=== PATIENT | female | born 1970 ===

== ENCOUNTER 2017-05-11 17:58 | Emergency (ER) | payer OTHER ==
[2017-05-11 18:08] VITALS: BMI 34.9
[2017-05-11 18:11] VITALS: TEMP 98.3; O2SAT 99
--- NOTE | 2017-05-11 21:15 | C.PDOC ---
Time Seen by Provider: 05/11/17 20:02 Chief Complaint (Nursing): Cough, Cold, Congestion History Per: Patient Onset/Duration Of Symptoms: Days (about 3 weeks) Current Symptoms Are (Timing): Still Present Associated Symptoms: Cough Severity: Moderate Additional History Per: Prior Records Past Medical History Reviewed: Historical Data, Nursing Documentation, Vital Signs Vital Signs: Last Vital Signs Temp 98.3 F 05/11/17 18:09 Pulse 84 05/11/17 18:09 Resp 18 05/11/17 18:09 BP 146/74 05/11/17 18:09 Pulse Ox 99 05/11/17 18:09 - Medical History PMH: No Chronic Diseases Family History: States: Unknown Family Hx - Social History Hx Tobacco Use: Yes Hx Alcohol Use: No Hx Substance Use: No - Immunization History Hx Tetanus Toxoid Vaccination: No Hx Influenza Vaccination: No Hx Pneumococcal Vaccination: No Review Of Systems Except As Marked, All Systems Reviewed And Found Negative. Constitutional: Negative for: Fever ENT: Negative for: Nose Congestion, Throat Pain Respiratory: Positive for: Cough. Negative for: Hemoptysis Gastrointestinal: Positive for: Other (LUQ pain when she has a coughing episodes ). Negative for: Vomiting, Diarrhea Musculoskeletal: Negative for: Neck Pain Skin: Negative for: Rash Neurological: Negative for: Weakness, Numbness Physical Exam - Physical Exam Appears: Non-toxic, No Acute Distress Skin: Normal Color, Warm, Dry, No Rash Head: Atraumatic, Normacephalic Eye(s): bilateral: Normal Inspection, PERRL, EOMI Neck: Normal ROM, Supple Chest: Symmetrical Cardiovascular: Rhythm Regular Respiratory: Normal Breath Sounds, No Accessory Muscle Use Gastrointestinal/Abdominal: Soft, No Tenderness Back: No CVA Tenderness Extremity: Normal ROM, No Pedal Edema, No Calf Tenderness Neurological/Psych: Oriented x3, Normal Motor, Normal Sensation ED Course And Treatment O2 Sat by Pulse Oximetry: 99 Pulse Ox Interpretation: Normal - Radiology CXR: Interpreted by Me, Viewed By Me CXR Interpretation: Yes: No Acute Disease Disposition Counseled Patient/Family Regarding: Studies Performed, Diagnosis, Need For Followup, Rx Given, Smoking Cessation - Disposition Referrals: Jose Paige [Staff Provider] - Disposition: HOME/ ROUTINE Disposition Time: 21:19 Condition: STABLE Additional Instructions: Stop smoking. Follow up with your doctor within 1 week. Return to the ER if you develop fever, shortness of breath, worsening of symptoms or if you have any other concerns. Prescriptions: Albuterol HFA [Ventolin HFA 90 mcg/actuation (8 g)] 2 puff IH Q4 PRN #1 unit PRN Reason: Cough And Congestion Azithromycin [Zithromax] 1 dose PO DAILY #1 pkt Promethazine HCl/Codeine [Prometh-Codein 6.25-10 mg/5 ml] 5 ml PO Q4 PRN #120 ml PRN Reason: Cough Instructions: Acute Bronchitis (ED) Forms: [employer] (Persian) - Clinical Impression Clinical Impression: Bronchitis
[2017-05-11 21:56] VITALS: RESP 20
[2017-05-11 21:59] VITALS: BP 128/72; PULSE 88
--- NOTE | 2017-05-12 13:26 | RAD ---
HISTORY: Cough, SOB COMPARISON: No prior. TECHNIQUE: Chest PA and lateral FINDINGS: LUNGS: No active pulmonary disease. PLEURA: No significant pleural effusion identified. No pneumothorax apparent. CARDIOVASCULAR: Normal. OSSEOUS STRUCTURES: Minor multilevel degenerative spondylosis of the thoracic spine VISUALIZED UPPER ABDOMEN: Normal. OTHER FINDINGS: None. IMPRESSION: No active disease.
== END 2017-05-11 21:15 | disposition home or self-care (01) ==
LOC: C.ER 17:58
DX: J40 Bronchitis, not specified as acute or chronic (principal); Z72.0 Tobacco use